=== PATIENT | female | born 1950 | race Caucasian/White ===

== ENCOUNTER 2022-11-20 10:52 | Outpatient (CLI) | payer OTHER | END 2022-11-20 12:27 | disposition home or self-care (01) | LOC: RAD 10:52 | PROVIDERS: ATTEND Orthopaedic Surgery | DX: M79.641 Pain in right hand (principal); M79.642 Pain in left hand ==

== ENCOUNTER 2023-01-12 06:56 | Outpatient (CLI) | payer OTHER | END 2023-01-12 06:58 | disposition home or self-care (01) | LOC: LAB 06:56 | PROVIDERS: ATTEND Orthopaedic Surgery | DX: D68.8 Other specified coagulation defects (principal); N39.0 Urinary tract infection, site not specified; D64.9 Anemia, unspecified; E88.9 Metabolic disorder, unspecified; B95.62 Methicillin resistant Staphylococcus aureus infection as the cause of diseases classified elsewhere; E08.9 Diabetes mellitus due to underlying condition without complications; I10 Essential (primary) hypertension; Z76.89 Persons encountering health services in other specified circumstances; M25.571 Pain in right ankle and joints of right foot; M25.572 Pain in left ankle and joints of left foot; M79.671 Pain in right foot; M79.672 Pain in left foot ==